=== PATIENT | male | born 1975 | race African-American/Black ===

== ENCOUNTER → 2017-08-17 | Outpatient (CLI) | payer MEDICARE ==
--- NOTE | 2017-08-17 11:02 | REP ---
Clinical: Nephrolithiasis. Findings: Mild chronic-appearing perinephric stranding is suggested. There is no evidence for hydroureteronephrosis, nephrolithiasis, or obstructing ureteral calculi. The bladder is unremarkable. Liver includes to areas of focal low density adjacent to the gallbladder and gallbladder fossa measuring up to 3 cm diameter which may reflect areas of fatty infiltration and less likely mass lesion. Spleen, pancreas, gallbladder, bilateral adrenal glands are normal for noncontrast evaluation. The enteric system is without obstruction or acute inflammatory process. Pelvis demonstrates relatively normal bladder. Calcifications involving the seminal vesicles are nonspecific but possibly related to underlying diabetes mellitus. No ascites. No adenopathy. No mass lesion. Abdominal aorta without aneurysm. Musculoskeletal structures are intact. Lung bases are clear. Impression: 1. Mild symmetric chronic-appearing perinephric stranding. No evidence for nephroureterolithiasis or hydronephrosis. 2. Focal low density areas involving the liver up to 3 cm likely represent focal fatty infiltration and less likely mass lesion. Consider liver ultrasound for follow-up and corroboration. Signed by Stiven Miller MD 08/17/2017 10:54 A
== END ==
LOC: M RAD 10:03
PROVIDERS: ATTEND Internal Medicine Nephrology
DX: N20.0 Calculus of kidney (principal)

== ENCOUNTER → 2019-04-12 | Outpatient (REF) | payer MEDICARE, MEDICAID | LOC: M LAB REF 16:55 | PROVIDERS: ATTEND Podiatrist | DX: M79.671 Pain in right foot (principal) ==